=== PATIENT | female | born 1960 | race Caucasian/White ===

== ENCOUNTER 2021-10-19 02:32 | Inpatient (IN) | payer OTHER ==
[~2021-10-19] VITALS: Ht 177.8 cm; Wt 132.1 kg
[2021-10-19 04:11] LABS: HEMOGLOBIN 13.4 gm/dl (12.3-15.3); RED BLOOD COUNT 5.03 M/UL (4.00-5.10); WHITE BLOOD COUNT 12.4 K/UL (4.5-11.0)
[2021-10-19] MEDS ORDERED: SYNTHROID200 MCG PO (04:21)
[2021-10-19] MEDS ORDERED: DILT-XR120 MG PO (04:21)
[2021-10-19] MEDS ORDERED: PREDNISONE20 MG PO (04:22)
[2021-10-19] MEDS ORDERED: METOPROLOL SUCC50 MG PO (04:22)
[2021-10-19 04:30] LABS: BUN/CREATININE RATIO 29 (0-10)
[2021-10-19] MEDS ORDERED: ASPIRIN EC325 MG PO (10:47)
[2021-10-19] MEDS ORDERED: ACETAMINOPHEN325 MG PO (10:48)
--- NOTE | 2021-10-19 13:43 | NUR ---
pt educated on cardiac cath at this time per CHRIS RICKS
[2021-10-20 02:50] LABS: HEMOGLOBIN 12.3 gm/dl (12.3-15.3); RED BLOOD COUNT 4.65 M/UL (4.00-5.10); WHITE BLOOD COUNT 10.1 K/UL (4.5-11.0)
[2021-10-20 03:20] LABS: BUN/CREATININE RATIO 20 (0-10)
[2021-10-21 02:40] LABS: HEMOGLOBIN 12.4 gm/dl (12.3-15.3); RED BLOOD COUNT 4.7 M/UL (4.00-5.10); WHITE BLOOD COUNT 8.6 K/UL (4.5-11.0)
[2021-10-21 03:10] LABS: BUN/CREATININE RATIO 18 (0-10)
[2021-10-21] MEDS ORDERED: ATORVASTATIN CA20 MG PO (11:06)
[2021-10-21] MEDS ORDERED: BRILINTA 90 MG90 MG PO (11:06)
[2021-10-21] MEDS ORDERED: LOPRESSOR 25 MG25 MG PO (11:08)
[2021-10-21] MEDS ORDERED: ASPIRIN EC81 MG PO (11:11)
[2021-10-21] MEDS ORDERED: ZESTRIL2.5 MG PO (15:03)
== END 2021-10-21 16:15 | disposition home or self-care (01) | DRG 247 ==
LOC: PROG CARE 02:32
PROVIDERS: Internal Medicine; Internal Medicine Cardiovascular Disease; ADMIT Internal Medicine
PROC: 4A023N7 Measurement of Cardiac Sampling and Pressure, Left Heart, Percutaneous Approach (ICD-10-PCS; principal; 2021-10-19)
PROC: 027034Z Dilation of Coronary Artery, One Artery with Drug-eluting Intraluminal Device, Percutaneous Approach (ICD-10-PCS; 2021-10-19)
PROC: B2111ZZ Fluoroscopy of Multiple Coronary Arteries using Low Osmolar Contrast (ICD-10-PCS; 2021-10-19)
PROC: B240ZZ3 Ultrasonography of Single Coronary Artery, Intravascular (ICD-10-PCS; 2021-10-19)
PROC: B24BZZZ Ultrasonography of Heart with Aorta (ICD-10-PCS; 2021-10-19)
DX: I21.4 Non-ST elevation (NSTEMI) myocardial infarction (principal); I48.92 Unspecified atrial flutter; I47.1 Supraventricular tachycardia; Z68.41 Body mass index [BMI] 40.0-44.9, adult; E03.9 Hypothyroidism, unspecified; I10 Essential (primary) hypertension; E66.9 Obesity, unspecified; Z20.822 Contact with and (suspected) exposure to COVID-19; M54.9 Dorsalgia, unspecified; G89.29 Other chronic pain; F32.A Depression, unspecified; F41.9 Anxiety disorder, unspecified; Z90.49 Acquired absence of other specified parts of digestive tract; Z98.49 Cataract extraction status, unspecified eye; Z82.49 Family history of ischemic heart disease and other diseases of the circulatory system; Z79.899 Other long term (current) drug therapy; Z91.018 Allergy to other foods; Z79.52 Long term (current) use of systemic steroids; Z79.82 Long term (current) use of aspirin
CPT/HCPCS: ECHO; 36415; 80048; 82550; 82553; 83735; 83880; 84132; 84439; 84443; 84484; 85025; 85027; 85347; 85610; 85730; 92978; 93005; 93270; 93306; 99152; 99153; C1725; C1753; C1769; C1874; C1887; C1894; C9600; J1644; J2250; J3010; J7030; J7040; Q9967; U0002